=== PATIENT | female | born 1965 | race Caucasian/White ===

== ENCOUNTER 2020-06-09 16:23 | Outpatient (CLI) | payer OTHER, SELFPAY ==
--- NOTE | ~2020-06-09 | MM_ITS ---
EXAMINATION: MM screening [facility] BI w [facility] HISTORY: Screening mammogram TECHNIQUE: Craniocaudal and mediolateral oblique 3-D tomosynthesis images were obtained and synthetic 2-D images were generated. CAD analysis was submitted and interpreted. COMPARISON: 06/06/2019, 06/05/2018, 04/25/2017 BREAST PARENCHYMAL COMPOSITION: There are scattered areas of fibroglandular density. FINDINGS: Scattered benign-appearing calcifications are present. There is no evidence of suspicious m ass, calcification, or architectural distortion to suggest malignancy in either breast. There has bee n no suspicious interval change. IMPRESSION: 1. No mammographic evidence of malignancy. 2. Recommend routine screening mammography in one year. BI-RADS Category 2: Benign finding(s). Reviewed, dictated and finalized at location A.
== END 2020-06-09 16:24 | disposition home or self-care (01) ==
PROVIDERS: Visit Provider Obstetrics & Gynecology
DX: Z12.31 Encounter for screening mammogram for malignant neoplasm of breast (principal)
CPT/HCPCS: 77063; 77067

== ENCOUNTER 2020-10-17 15:19 | Observation (INO) | payer OTHER, SELFPAY ==
[2020-10-17] VITALS (11 sets, daily range): BP systolic 92–124; BP diastolic 49–82; PULSE 54–97; RESP 14–20; TEMP 36.4–36.9; O2SAT 98–100; BMI 28.1
--- NOTE | ~2020-10-17 | XR_ITS ---
EXAMINATION: XR chest 2V DATE: 10/17/2020 15:48 INDICATION: Chest pain TECHNIQUE: PA and lateral views of the chest are obtained. COMPARISON: 10/26/2013 FINDINGS: The lungs are free of acute opacities. There is no pleural effusion or pneumothorax. The ca rdiomediastinal silhouette is normal. There is mild thoracic spondylosis. IMPRESSION: 1. No acute cardiopulmonary abnormality. Reviewed, dictated and finalized at location A. RAM MANAGER SLP
--- NOTE | 2020-10-17 15:27 | ECG_ITS ---
Measurements Intervals [place] Rate: 89 P: 75 NE: 166 QRS: 69 QRSD: 94 T: 55 QT: 358 QTc: 436 Interpretive Statements SINUS RHYTHM NORMAL ECG Electronically Signed On 10-18-2020 7:31:56 SIDE PANEL HANGER by Hamlet Gilmore D.O.
--- NOTE | 2020-10-17 15:42 | ED.CHESTPAIN ---
HPI - Chest Pain General Chief Complaint: Chest Pain Stated Complaint: nausea and chest pain Time Seen by Provider: 10/17/20 15:24 Source: patient Mode of arrival: ambulatory Limitations: no limitations History of Present Illness HPI narrative: Patient is a 55-year-old female complaining of chest pain, midsternal, pressure, 8 out of 10, now down to 2 out of 10 after being given nitro by EMS, accompanied by diaphoresis started today. Patient denies any shortness of breath, dull pain, nausea, vomiting, fever or chills. Related Data Home Medications Medication Instructions Recorded Confirmed aspirin 81 mg PO DAILY 10/17/20 10/17/20 atorvastatin 20 mg PO DAILY 10/17/20 10/17/20 Allergies Allergy/AdvReac Type Severity Reaction Status Date / Time aloe vera Allergy Unknown Itching Verified 10/17/20 15:25 menthol Allergy Unknown Itching Verified 10/17/20 15:25 Review of Systems Review of Systems: All systems reviewed & are unremarkable except as noted in HPI and below Constitutional: Constitutional: Denies body ache(s), Denies chills, Denies excessive sweating, Denies fatigue, Denies fever(s), Denies headache(s), Denies lethargy, Denies malaise, Denies weakness and Denies weight loss Eyes: Eyes: Denies blurry vision, Denies change in vision and Denies loss of vision ENT: Denies dizziness, Denies ear discharge, Denies headache(s), Denies lip swelling, Denies epistaxis, Denies nasal congestion, Denies neck pain, Denies throat swelling and Denies tongue swelling Cardiovascular: Cardiovascular: Denies rapid heart rate, Denies edema, Denies irregular heart rhythm, Denies lightheadedness, Denies palpitations, Denies dyspnea and Denies dyspnea on exertion Respiratory: Respiratory: Denies chest congestion, Denies cough, Denies hemoptysis, Denies dyspnea and Denies dyspnea on exertion Gastrointestinal: Gastrointestinal: Denies abdominal pain, Denies melena, Denies hematochezia, Denies diarrhea, Denies nausea, Denies vomiting and Denies hematemesis Musculoskeletal: Musculoskeletal: Denies abnormal gait, Denies deformity, Denies joint swelling, Denies limited range of motion, Denies neck pain and Denies numbness Neurologic: Denies Abnormal speech present, Denies abnormal gait, Denies confusion, Denies dizziness, Denies headache(s), Denies focal weakness, Denies loss of vision, Denies numbness, Denies Other visual disturbances, Denies Sensory deficit (Neuro) and Denies weakness Psychiatric: Psychiatric: Denies confusion, Denies depression, Denies auditory hallucinations, Denies homicidal ideation and Denies suicidal ideation Endocrine: Endocrine: Denies cold intolerance, Denies excessive sweating, Denies fatigue, Denies heat intolerance and Denies palpitations Hematologic/Lymphatic: Hematologic/Lymphatic: Denies easy bleeding and Denies easy bruising Allergic/Immunologic: Allergic/Immunologic: Denies lip swelling, Denies throat swelling and Denies tongue swelling PMFSH Family History Family History Sibling Family history of gastrointestinal disorder Grandparent Cerebrovascular accident Social History Social History Alcohol intake: current Exam Const: General: cooperative, healthy appearing, comfortable, no acute distress, well developed, alert and awake; No confusion Orientation/consciousness: oriented to person, oriented to place, oriented to time, patient oriented x3 and No confusion Limitations: no limitations HENMT: Head: normal to inspection, normocephalic and atraumatic Ears: hearing grossly normal bilaterally, TM normal on the right and TM normal on the left General nose exam: Normal external nose present, Normal nares present and No nasal discharge present Face and sinus: normal facial exam Mouth: Yes Normal oral and palatal mucosa present, Yes lip normal, Yes tongue normal and Yes oropharynx normal Throat: po
[2020-10-17 16:16] LABS: Basophils Absolute Auto 0.1 K/mm3 (0.0-0.1); Eosinophils Absolute Auto 0.1 K/mm3 (0-0.3); Eosinophils Percent Auto 1.6 % (0-4.4); Hematocrit 41.2 % (37.0-47.0); Hemoglobin 13.8 g/dL (12.0-15.0); Immature Granulocyte Absolute 0.02 K/mm3 (0.00-0.031); Immature Granulocyte Percent A 0.3 % (0-0.5); Lymphocytes Absolute Auto 1.36 K/mm3 (0.9-3.2); Lymphocytes Percent Auto 23.5 % (18.3-44.2); Mean Corpuscular HGB Conc 33.5 g/dl (32-36); Mean Corpuscular Hemoglobin 31.7 pg (26-34); Mean Corpuscular Volume 94.7 fl (80-100); Monocytes Absolute Auto 0.6 K/mm3 (0.1-0.6); Monocytes Percent Auto 9.7 % (2.6-8.5); Neutrophils Absolute Auto 3.7 K/mm3 (1.3-6.7); Neutrophils Percent Auto 63.9 % (45.5-73.1); Platelet Count Result 236 k/mm3 (150-375); Red Blood Count 4.35 M/mm3 (4.2-5.4); Red Cell Distribution Width 12.6 % (11.5-14.5); White Blood Count 5.8 K/mm3 (4.5-10.0)
[2020-10-17 16:25] LABS: INR 0.9; Prothrombin Time 12.4 Seconds (11.1-14.7)
[2020-10-17 16:26] LABS: Partial Thromboplastin Time 25.8 SECONDS (22.3-36.8)
[2020-10-17 16:28] LABS: Alanine Aminotransferase 24 U/L (4-35); Alkaline Phosphatase 46 U/L (38-126); Anion Gap 6 mmol/L (8-16); Aspartate Amino Transferase 29 U/L (14-36); Bilirubin,Total 0.3 mg/dL (0.2-1.3); Blood Urea Nitrogen 17 mg/dL (7-17); Calcium 8.8 mg/dL (8.4-10.2); Carbon Dioxide 28 mmol/L (22-30); Chloride 106 mmol/L (98-107); Estimated CRCL calculation 58 ml/min; Estimated Glomerular Filt Rate > 60; Glucose 107 mg/dL (65-105); Potassium 3.9 mmol/L (3.4-5.0); Sodium 140 mmol/L (137-145)
[2020-10-17 16:37] LABS: NT Pro B Type Natriuretic Pept 57 PG/ML (5-100)
[2020-10-17 16:40] LABS: Troponin I < 0.012 ng/mL (0.000-0.034)
[2020-10-17] MEDS: NITROGLYCERIN OINTMENT 1 INCH DOSE TRANSDERM (17:46)
--- NOTE | 2020-10-17 19:30 | PM.IMHP ---
H&P: HPI History of Present Illness Date/Time: 10/17/20 19:30 Chief Complaint: Chest pain. Narrative: This is a very pleasant 55-year-old female with coronary artery disease status post stent to the proximal LAD in April 2013, hypertension, hyperlipidemia, Crohn's disease who presented to the emergency department earlier today via EMS from home for evaluation of chest pain. She was in usual state of health when she woke this morning and spent some time running errands before returning home to do laundry. While doing laundry she developed sudden onset of midsternal chest discomfort, described as squeezing or pressure like in nature associated with nausea, sweats, pounding heart, and dizziness. At the onset she rates the discomfort 5/10 but it did intensify to 8/10 before centrally resolving after receiving nitro spray and morphine. The symptoms are nearly identical to those she experience prior to having her stent placed in 2012. Currently she has no significant complaints and she specifically denies pleuritic pain, palpitations, vomiting, and shortness of breath. Review of Systems Review of Systems: Narrative: Twelve systems were reviewed with pertinent positives and negatives as per HPI. No recent cold or flu symptoms. Denies vomiting. No new exercise programs or recent heavy lifting. Prior to today she has not had any chest pain with exertion. No recent issues with regards to her Crohn's disease. Except as documented, all other systems were reviewed and are negative. [facility] Past Medical History Medical History (Updated 10/17/20 @ 22:31 by Sariah Colmenares PA-C) Coronary artery disease Stent to proximal LAD in 04/2013. Patient of Dr. Young at [facility]. Crohn's disease Hidradenitis suppurativa Several surgeries for treatment of such. Hyperlipidemia Hypertension Surgical History Surgical History (Updated 10/17/20 @ 22:32 by Sariah Colmenares PA-C) History of bladder suspension procedure History of cardiac catheterization (~04/2013) Status post stent to the proximal LAD. History of partial hysterectomy History of surgical procedure on eye proper using laser History of tonsillectomy Status post surgical removal of malignant neoplasm of skin Family History Family History Sibling Family history of gastrointestinal disorder Grandparent Cerebrovascular accident Social History Social History (Updated 10/17/20 @ 22:33 by Sariah Colmenares PA-C) Social History: Surrogate decision maker: Zenon Serrano, spouse. Code status: Full code. Smoking packs per day: 1 Smoking cigarettes per day: 20.0 Years smoked: 25 Smoking pack-years: 25.00 Smoking status: Former smoker Tobacco type: cigarettes Smoking end date: 05/14/14 Alcohol intake: never Drinks per week: 0 Substance use: never Additional living arrangements comments: Patient lives in [place] with her . They have 3 grown daughters. 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 Spiritual care concerns: No Meds Home Medications and Allergies Home Medications Medication Instructions Recorded Confirmed Type Adults Multivitamin 1 tablet PO DAILY 10/17/20 10/17/20 History alprazolam 0.25 mg PO TID PRN 10/17/20 10/17/20 History aspirin 81 mg PO DAILY 10/17/20 10/17/20 History atorvastatin 20 mg PO DAILY 10/17/20 10/17/20 History estrogens-methyltestosterone 1 tablet PO DAILY 10/17/20 10/17/20 History zolpidem 10 mg PO HS 10/17/20 10/17/20 History Allergies Allergy/AdvReac Type Severity Reaction Status Date / Time aloe vera Allergy Unknown Itching Verified 10/17/20 15:25 menthol Allergy Unknown Itching Verified 10/17/20 15:25 Vital Signs Vital Signs - 24 hr 10/17/20 15:17 10/17/20 15:40 10/17/20 16:40 Temperature 98.4 F Pulse Rate 88 72 64 Respiratory Rate 20 16 Bl
[2020-10-17 19:58] LABS: Troponin I < 0.012 ng/mL (0.000-0.034)
--- NOTE | 2020-10-17 21:00 | PC.NURSE ---
This patient, Adrianna Serrano, was admitted to IMU Room 213-01. Patient/family oriented to hospital policies and general routines including ID bracelet, bed and alarms, visiting hours, pain management, procedures, bathroom and other care routines, personal items, smoking policy, room service/diet, and visiting hours. Information on how to activate the Rapid Response Team has been discussed. Patient/Family are encouraged to report perceived risks to care and to ask questions if they do not understand what they are told or what they should do.
[2020-10-17 22:33] LABS: Troponin I < 0.012 ng/mL (0.000-0.034)
--- NOTE | 2020-10-17 23:26 | ECG_ITS ---
Measurements Intervals [place] Rate: 53 P: 45 RI: 168 QRS: 38 QRSD: 102 T: 24 QT: 435 QTc: 409 Interpretive Statements SINUS BRADYCARDIA BORDERLINE ECG Electronically Signed On 10-18-2020 7:39:57 FACILITY SALES AND ADMIN by Hamlet Gilmore D.O.
[2020-10-18] VITALS (20 sets, daily range): BP systolic 91–107; BP diastolic 52–72; PULSE 52–72; RESP 16–20; TEMP 36.1–37.2; O2SAT 98–100
[2020-10-18] MEDS: METOPROLOL SUCCINATE EXT REL 25 MG TABCR PO (01:15)
[2020-10-18] MEDS: NITROGLYCERIN OINTMENT 1 INCH DOSE TRANSDERM ×5 (01:16→23:13)
[2020-10-18] MEDS: ENOXAPARIN 80 MG/0.8 ML SYRINGE 70 MG SUB-Q (01:20)
[2020-10-18] MEDS: MULTIVITAMINS THERAPEUTIC TAB (*BKC) 1 TABLET PO (09:42)
--- NOTE | 2020-10-18 12:05 | PM.CNCAR ---
Assessment and Plan Additional Plan This is a 55-year-old lady who is known to have coronary disease as stated above she underwent successful PCI of the LAD about 8 years ago and has done well since then. She enters the hospital with a chest pain syndrome also with some palpitations at appears to be largely atypical of angina. There is no evidence of acute coronary syndrome objectively. We discussed the indication for a ischemia evaluation at this time given the symptoms. She did have a negative nuclear stress test about 2 years ago. Since her biomarkers and ECG are negative I told her that I would most commonly recommended another stress test of some sort. After a long discussion it is her preference to proceed with an angiogram because the symptoms are occurring in the face of no provoking symptoms and she is concerned about her coronary arteries. I also told the patient that the she could have some sort of tachyarrhythmia triggering this since the symptoms began without exertion at home while she was folding laundry and the initial symptom was abrupt tachycardia. In any event I am going to schedule her for a follow-up coronary angiogram tomorrow morning. Further recommendations will be forthcoming completing that exam. Severiano Limon MD [facility] History of Present Illness History of Present Illness Consult date/time: 10/18/20 12:05 Consult reason: chest pain Reason For Visit: Chest Pain Narrative: This is a pleasant 55-year-old lady am seeing at the request of the hospitalist because of chest pain. This is a patient who is known to me who had a intervention for proximal LAD stenosis in 2012. She has been doing well in recent years and has not seen me in the office for about 5 years. The patient states that she was in her usual state of good health when yesterday she was folding some laundry at home and suddenly had the onset of tachycardia and feeling unwell. In addition to the symptoms she had some sensation of pressure-like sensation in the substernal region that was constant waxing and waning in severity but constant for at least a couple of hours. For that reason she came to the emergency room for evaluation last evening. In the emergency room her electrocardiogram was found to be normal her biomarkers were normal and she was admitted to the hospitalist service. She was placed on some aspirin nitrates and was given a dose of heparin I believe in the emergency department. I was called at about 1:00 a.m. in the morning that she was having some recurrence of this symptom after her nitroglycerin paste was wiped off which had been placed to treat this in the emergency room. It was wiped off because her systolic blood pressure was in the mid 90s. The hospitalist at night instructed them to call me in the middle of the night to respond to this. I gave the patient an aspirin tablet placed her back on nitropaste a low dose of metoprolol and ordered systemic anticoagulation with Lovenox. Her biomarkers have remained normal and she appears to be very comfortable in the room the this afternoon. She has not had any pattern of exertional chest pain at all. This is a lady that has had a history of coronary disease as mentioned above she presented in the fall of 2012 with acute coronary syndrome at that time had ischemic ECG changes and an elevation in her biomarkers. Angiography demonstrated high-grade stenosis in the proximal LAD which was successfully treated with stenting. She had done well since then. She has had a number of admissions to the hospital since then and visits to the emergency room with chest pain symptoms. She was returned to the cytology laboratory manager shortly after her PCI for evaluation of these symptoms and was found to have no coronary stenosis. On number of occasions she has had stress test performed also which have been negative. She has been seeing a department head at [facility] more recently who she states has performed a negative nuclear stress t
[2020-10-18] MEDS: ACETAMINOPHEN 325 MG TABLET 650 MG PO ×2 (12:24→23:15)
--- NOTE | 2020-10-18 12:53 | PM.IMPN ---
Progress Note: A&P Assessment and Plan (1) Chest pain: Qualifiers: Chest pain type: unspecified Qualified Code(s): R07.9 - Chest pain, unspecified Code(s): R07.9 - Chest pain, unspecified Status: Acute Assessment and Plan: CP improving with nitro paste but still present -Trop neg x 3 -Ekg without significant abnormalities -Plan for cath in the morning -Continue aspirin -Pt takes oral hormones at home. She may need to change to topical due to cardiac disease (2) Coronary artery disease: Code(s): I25.10 - Atherosclerotic heart disease of [place] coronary artery without angina pectoris Status: Acute Assessment and Plan: As above -continue aspirin (3) Hyperlipidemia: Code(s): E78.5 - Hyperlipidemia, unspecified Status: Acute Assessment and Plan: Continue lipitor -consider increasing. await cath Time Spent With Patient Time with patient: 25 - 35 minutes Subjective Date/time seen: 10/18/20 12:53 Interval history: Pt is a 55 y/o female here for CP. Pt states she continues to have chest pain that is squeezing in nature. She said the nitro paste helps her and when they took it off last night she started having CP again. She says this feels like her prior heart attack although she did not have the diaphoresis this time that she had last time. She has not had any nausea, vomiting, diarrhea, fevers, or SOB. Nurse reports the pt was taking her home hormonal medication at bedside. This is on hold and nurse has informed pt not to do so. Review of Systems Review of Systems: All systems reviewed & are unremarkable except as noted in HPI and below Exam Narrative: Exam Narrative: General: Well developed well nourished patient in NAD HEENT: normocephalic Neck: supple Neuro: Alert and oriented x4 CV:RRR. Tele did not show any abnormalities except sinus bradycardia 50 Resp:CTA Abd: Soft, non distended. No pain to palpation. Positive bowel sounds Extremities: No swelling, erythema, or pain to palpation. Objective Data Vital Signs Vital Signs: Vital Signs - 24 hr 10/17/20 15:17 10/17/20 15:40 10/17/20 16:40 Temperature 98.4 F Pulse Rate 88 72 64 Respiratory Rate 20 16 Blood Pressure 124/82 Pulse Oximetry 100 99 10/17/20 18:30 10/17/20 19:20 10/17/20 20:00 Temperature Pulse Rate 76 64 54 L Respiratory Rate 14 16 Blood Pressure 120/64 118/72 Pulse Oximetry 100 98 10/17/20 20:10 10/17/20 22:00 10/17/20 22:06 Temperature 98.2 F Pulse Rate 55 L Respiratory Rate 16 Blood Pressure 94/53 L 92/59 L 92/49 L Pulse Oximetry 100 10/17/20 22:30 10/17/20 23:54 10/18/20 00:00 Temperature 97.5 F L Pulse Rate 58 L 97 52 L Respiratory Rate 16 Blood Pressure 94/61 L Pulse Oximetry 100 10/18/20 00:35 10/18/20 01:15 10/18/20 02:00 Temperature Pulse Rate 65 58 L Respiratory Rate Blood Pressure 105/65 Pulse Oximetry 100 10/18/20 04:00 10/18/20 06:00 10/18/20 08:00 Temperature 97.3 F L Pulse Rate 61 69 71 Respiratory Rate 16 Blood Pressure 97/52 L Pulse Oximetry 98 10/18/20 08:37 10/18/20 09:10 10/18/20 10:00 Temperature 98.3 F Pulse Rate 57 L 59 L Respiratory Rate 18 Blood Pressure 91/68 L Pulse Oximetry 98 98 10/18/20 12:13 Temperature 97.6 F Pulse Rate 59 L Respiratory Rate 18 Blood Pressure 100/61 Pulse Oximetry 100 Intake/Output Intake/Output: Intake & Output 10/15/20 10/16/20 10/17/20 10/18/20 23:59 23:59 23:59 23:59 Intake Total 550 Output Total 100 Balance 450 Meds/Results Medications: Active Medications Generic Name Dose Route Start Last Admin Trade Name Freq PRN Reason Stop Dose Admin Acetaminophen 650 mg 10/18/20 02:26 10/18/20 12:24 Acetaminophen 325 Mg Tablet PO 650 mg Q6H PRN Administration Pain Rated 1-3 Alprazolam 0.25 mg 10/17/20 21:21 Alprazolam (*Crx) 0.25 Mg Tablet PO TI
[2020-10-18] MEDS: ATORVASTATIN 20 MG TABLET PO (17:56)
[2020-10-18] MEDS: ASPIRIN 81 MG ENTERIC TABLET PO (17:56)
[2020-10-18] MEDS: ZOLPIDEM TARTRATE (*CRX) 5 MG TABLET 10 MG PO (23:14)
[2020-10-19] VITALS (17 sets, daily range): BP systolic 96–120; BP diastolic 63–73; PULSE 49–79; RESP 15–20; TEMP 35.7–36.7; O2SAT 97–100
[2020-10-19 04:44] LABS: Hemoglobin 11.6 g/dL (12.0-15.0); Mean Corpuscular HGB Conc 33.1 g/dl (32-36); Mean Corpuscular Hemoglobin 31.2 pg (26-34); Mean Corpuscular Volume 94.1 fl (80-100); Mean Platelet Volume 9.7 fl (7.4-10.4); Platelet Count Result 220 k/mm3 (150-375); Red Blood Count 3.72 M/mm3 (4.2-5.4); Red Cell Distribution Width 12.8 % (11.5-14.5); White Blood Count 7.2 K/mm3 (4.5-10.0)
[2020-10-19 04:52] LABS: INR 0.9; Prothrombin Time 13.1 Seconds (11.1-14.7)
[2020-10-19 04:54] LABS: Anion Gap 0 mmol/L (8-16); Blood Urea Nitrogen 15 mg/dL (7-17); Calcium 7.9 mg/dL (8.4-10.2); Carbon Dioxide 29 mmol/L (22-30); Chloride 109 mmol/L (98-107); Estimated CRCL calculation 63 ml/min; Estimated Glomerular Filt Rate > 60; Glucose 86 mg/dL (65-105); Potassium 4.1 mmol/L (3.4-5.0); Sodium 138 mmol/L (137-145)
[2020-10-19] MEDS: ACETAMINOPHEN 325 MG TABLET 650 MG PO (05:10)
[2020-10-19] MEDS: NITROGLYCERIN OINTMENT 1 INCH DOSE TRANSDERM (05:11)
--- NOTE | 2020-10-19 09:10 | WPDMODSED ---
Moderate Sedation Note-Pt Data Patient Data Diagnosis: chest pain previous history of LAD stent Present Complaint: chest pain Procedure to be performed/Plan: left heart catheterization Allergies Allergy/AdvReac Type Severity Reaction Status Date / Time aloe vera Allergy Unknown Itching Verified 10/17/20 15:25 menthol Allergy Unknown Itching Verified 10/17/20 15:25 Home Medications Medication Instructions Recorded Confirmed Type Adults Multivitamin 1 tablet PO DAILY 10/17/20 10/17/20 History alprazolam 0.25 mg PO TID PRN 10/17/20 10/17/20 History aspirin 81 mg PO 10/17/20 10/18/20 History atorvastatin 20 mg PO 10/17/20 10/18/20 History estrogens-methyltestosterone 1 tablet PO DAILY 10/17/20 10/17/20 History zolpidem 10 mg PO 10/17/20 10/17/20 History Current Medications: Active Medications Acetaminophen (Acetaminophen 325 Mg Tablet) 650 mg PO Q6H PRN PRN Reason: Pain Rated 1-3 Last Admin: 10/19/20 05:10 Dose: 650 mg Documented by: Alprazolam (Alprazolam (*Crx) 0.25 Mg Tablet) 0.25 mg PO TID PRN PRN Reason: Anxiety Aspirin (Aspirin 81 Mg Enteric Tablet) 81 mg PO 1700 [facility] Last Admin: 10/18/20 17:56 Dose: 81 mg Documented by: Atorvastatin Calcium (Atorvastatin 20 Mg Tablet) 20 mg PO 1700 [facility] Last Admin: 10/18/20 17:56 Dose: 20 mg Documented by: Multivitamins Therapeutic (Multivitamins Therapeutic Tab (*Bkc)) 1 tablet PO QAM [facility] Last Admin: 10/18/20 09:42 Dose: 1 tablet Documented by: Nitroglycerin (Nitroglycerin Ointment 1 Inch Dose) 1 inch TRANSDERM Q6HR [facility] Last Admin: 10/19/20 05:11 Dose: 1 inch Documented by: Zolpidem Tartrate (Zolpidem Tartrate (*Crx) 5 Mg Tablet) 10 mg PO [facility] Last Admin: 10/18/20 23:14 Dose: 10 mg Documented by: Sedation/Anesthesia: No previous sedation/anesthesia problems (including family history). [facility] Past Medical History Medical History (Updated 10/18/20 @ 13:02 by Kimberly Delaney PA-C) Coronary artery disease Stent to proximal LAD in 04/2013. Patient of Dr. Young at [facility]. Crohn's disease Hidradenitis suppurativa Several surgeries for treatment of such. Hyperlipidemia Surgical History Surgical History (Updated 10/17/20 @ 22:32 by Sariah Colmenares PA-C) History of bladder suspension procedure History of cardiac catheterization (~04/2013) Status post stent to the proximal LAD. History of partial hysterectomy History of surgical procedure on eye proper using laser History of tonsillectomy Status post surgical removal of malignant neoplasm of skin Family History Family History Sibling Family history of gastrointestinal disorder Grandparent Cerebrovascular accident Social History Social History (Updated 10/17/20 @ 22:33 by Sariah Colmenares PA-C) Social History: Surrogate decision maker: Zenon Serrano, spouse. Code status: Full code. Smoking packs per day: 1 Smoking cigarettes per day: 20.0 Years smoked: 25 Smoking pack-years: 25.00 Smoking status: Former smoker Tobacco type: cigarettes Smoking end date: 05/14/14 Alcohol intake: never Drinks per week: 0 Substance use: never Additional living arrangements comments: Patient lives in [place] with her . They have 3 grown daughters. 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 Spiritual care concerns: No Mod Sed Physical Exam Physical Exam Pre Procedural Exam: Normal: Appearance, Throat, Airway, Lungs, Heart Size, Heart Rate, Heart Rhythm, Neuro Exam and Extremities Hours since solid foods: 12 Hours since liquid intake: 12 Internal Medicine - PN: Obj Da Vital Signs Vital Signs: Vital Signs - 24 hr 10/18/20 10:00 10/18/20 12:00 10/18/20 12:13 Temperature 36.4 C Pulse Rate 59 L 72 59 L Respiratory Rate 18 Blood Pressure 100/61 Pulse Oximetry 100 10/18/20 14:0
--- NOTE | 2020-10-19 10:40 | WPDCARDPROC ---
Cardiac Cath Procedure Note Date of procedure:: 10/19/20 Performing physician:: Severiano Limon MD Indication:: Coronary artery disease with recurrent chest pain Brief clinical history:: this is a 55-year-old woman who underwent stenting of her LAD 8 years ago. She has been having instances of atypical sounding chest pain since then. A previous follow-up angiogram was unremarkable. Also a nuclear stress test done elsewhere about 2 years ago was also by report negative. Despite that she enters the hospital with palpitations triggering recurrent chest pain. ECGs and biomarkers are negative. Procedure Procedure performed:: Left ventriculography coronary angiography coronary IFR measurement Angio-Seal to right femoral artery Sedation/Medication given:: fentanyl 50 mg Versed 2 mg case start time 10:02 a.m. case end time 10:32 a.m. sedation provided by Jocelyn Culp RN, trained observer Access site:: right femoral artery Estimated blood loss:: 10-15 cc Procedure note:: patient was brought to the cardiac catheterization lab in the postabsorptive state where the right femoral triangle was prepared and draped in the typical fashion. Anesthesia was provided with 1% lidocaine infiltrated locally. Using the modified Seldinger technique the right femoral artery was punctured after this a 5 Iraqi vascular sheath was placed. Left ventriculography was then performed using a 5 Iraqi angled pigtail catheter as well as measuring left-sided hemodynamics. Following this I used a 5 Iraqi FL4 catheter to engage inject the left coronary artery and then a 5 Iraqi JR4 catheter to engage inject the right coronary artery. After this the cineangiograms were then carefully reviewed. I elected to perform a coronary IFR determination in the LAD. Prior to IFR the 5 Iraqi sheath was changed for a 6 Iraqi sheath the patient was anticoagulated with a bolus of Angiomax. Following IFR determination the case was terminated angiogram was done of the femoral artery through the sheath after which a 6 Iraqi Angio-Seal device was deployed at the puncture site with a good hemostatic result. She was taken to the holding area for recovery with no evidence of any procedural complication and left the nitriles lab technician with no evidence of a groin hematoma. Findings:: Hemodynamics: Central aortic pressure is 105/58 left ventricle 105/0 end-diastolic of 10 there is no systolic gradient on pullback across the aortic valve. Left ventricle: The LV is normal in size all segments contracted normally the global ejection fraction visually estimated to be about 60%. The left main coronary artery is nicely patent the left anterior descending is a moderate caliber artery extending down to around the apex. The visible stent material in the proximal LAD appears to be nicely patent. There is minimal loss of lumen in the stented segment brought angiographically no more than about 30% stenosis. In the straight caudal projection it looked a little bit worse than that. There was SHEREEN 3 flow in the LAD. Circumflex is a large caliber artery giving rise to the marginal branch is the circumflex is angiographically smooth and free of disease right coronary artery is large in caliber dominant to the posterior circulation the right coronary artery is smooth and free of disease. Coronary IFR determination in the LAD is 0.95 Conclusion:: 1. coronary artery disease with previous stenting of the proximal LAD angiographically remains patent with minimal loss of lumen and IFR demonstrates no evidence of flow-limiting disease. 2. No evidence of left main circumflex or right coronary disease 3. normal left ventricular systolic function 4. Angio-Seal to right femoral artery 5. based on these stated that chest pain syndrome appears to be nonischemic in nature Severiano Limon MD [facility]
[2020-10-19] MEDS: MULTIVITAMINS THERAPEUTIC TAB (*BKC) 1 TABLET PO (13:56)
--- NOTE | 2020-10-19 14:35 | PM.DS ---
DS: Admitting Diagnosis Admitting Diagnosis Admitting Diagnosis: chest pain DS: Discharge Diagnosis Discharge Diagnosis (1) Chest pain: Qualifiers: Chest pain type: unspecified Qualified Code(s): R07.9 - Chest pain, unspecified Code(s): R07.9 - Chest pain, unspecified Status: Acute Assessment and Plan: CP was intermittent and improved with nitro throughout her stay -Trop neg x 3 -Ekg without significant abnormalities -cath showed: Coronary artery disease with previous stenting of the proximal LAD angiographically remains patent with minimal loss of lumen and IFR demonstrates no evidence of flow-limiting disease, No evidence of left main circumflex or right coronary disease, normal left ventricular systolic function, Angio-Seal to right femoral artery, based on these stated that chest pain syndrome appears to be nonischemic in nature -No changes in medicine. (2) Coronary artery disease: Code(s): I25.10 - Atherosclerotic heart disease of [place] coronary artery without angina pectoris Status: Acute Assessment and Plan: As above -continue aspirin (3) Hyperlipidemia: Code(s): E78.5 - Hyperlipidemia, unspecified Status: Acute Assessment and Plan: Continue lipitor DS: Summary Hospital Course Hospital Course: Pt is a 55 y/o female with a PMH of CAD s/p stenting in the past who presnted to the ED for chest pain while doing laundry. Pt states her CP was 8/10 and was a pressure like feeling that was consistent with her first MT. Vitals in the ER were temp 36.9, pulse 88, RR 20, pulse o2 100. WBC and BMP normal. Trop neg x 3. EKG normal. Pt was admitted to the ED for observation. She continued to have some CP and cardiology was consulted. She underwent a cath which did not show any etiology for the CP. She had no signs and symptoms of PNA or PE (no cough, no o2 requirements, no LE swelling). She was tested for COVID (she had an exposure) which was negative. Pt did well after her cath and was ready for discharge. She was educated about the worrisome signs and symptoms to come back to the ER for and was discharged in stable condition and has plans to f/u with her curtain stitcher. pt was called 10/22/20 about her covid results and was educated to continue quaranting herself and call her pcp if she starts to have symptoms. Her CP has resolved. educated to come back to the ER if it reoccurs. Status at Discharge Functional status at discharge: independent ambulation Overall status at discharge: patient is back to baseline Time Spent with Patient Time attestation: Total time spent providing and/or coordinating discharge services:38 min Exam Narrative: Exam Narrative: General: Well developed well nourished patient in NAD HEENT: normocephalic Neck: supple Neuro: Alert and oriented x4 CV:RRR. Tele did not show any abnormalities except sinus bradycardia 50 Resp:CTA Abd: Soft, non distended. No pain to palpation. Positive bowel sounds Extremities: No swelling, erythema, or pain to palpation. DS: Data Data Completed and Pending Labs on day of discharge: Labs from last 24 hours 10/19/20 10/19/20 10/19/20 04:34 04:34 04:34 WBC 7.2 RBC 3.72 L Hgb 11.6 L Hct 35.0 L MCV 94.1 MCH 31.2 MCHC 33.1 RDW 12.8 Plt Count 220 MPV 9.7 PT 13.1 INR 0.9 Sodium 138 Potassium 4.1 Chloride 109 H Carbon Dioxide 29 Anion Gap 0 L BUN 15 Creatinine 0.80 Estim Creat Clear Calc 63 Estimated GFR > 60 Glucose 86 Calcium 7.9 L Discharge Plan Discharge Attending physician on discharge: Chan Cruz Consulting providers: Severiano Limon ; Kimberly Delaney ; Oli Aldana ; Sariah Colmenares ; Hamlet Gilmore Discharging Clinician: Kimberly Delaney Patient Disposition: Home, Self-Care Activity: as tolerated Diet: regular Discharge Instructions: -Follow up with your
[2020-10-20 12:21] LABS: SARS-CoV-2 RNA PCR Negative
== END 2020-10-19 15:15 | disposition home or self-care (01) ==
LOC: ANHED 17:25 → ANHIMU 17:57
PROVIDERS: Specialist; Admitting Provider Internal Medicine; Emergency Provider Emergency Medicine; Visit Provider Physician Assistant
PROC: 4A023N7 Measurement of Cardiac Sampling and Pressure, Left Heart, Percutaneous Approach (ICD-10-PCS; CPT 93452; principal; 2020-10-19 09:10)
PROC: 4A033BC Measurement of Arterial Pressure, Coronary, Percutaneous Approach (ICD-10-PCS; CPT 93571; 2020-10-19 09:10)
DX: R07.9 Chest pain, unspecified (principal); I25.10 Atherosclerotic heart disease of native coronary artery without angina pectoris; E78.5 Hyperlipidemia, unspecified; I10 Essential (primary) hypertension; K50.90 Crohn's disease, unspecified, without complications; Z95.5 Presence of coronary angioplasty implant and graft; Z79.82 Long term (current) use of aspirin; Z87.891 Personal history of nicotine dependence; Z20.822 Contact with and (suspected) exposure to COVID-19
CPT/HCPCS: 36415; 71046; 80048; 80053; 83880; 84484; 85025; 85027; 85610; 85730; 93005; 93458; 93571; 96372; 99285; A9270; C1760; C1769; C1887; C1894; C9803; G0269; G0378; J0583; J1644; J1650; J2250; J3010; J7040; U0003; U0005

== ENCOUNTER 2021-06-11 15:21 | Outpatient (CLI) | payer OTHER, SELFPAY ==
--- NOTE | ~2021-06-11 | MM_ITS ---
EXAMINATION: MM screening [facility] w kimberly HISTORY: Screening mammogram TECHNIQUE: Craniocaudal and mediolateral oblique 3-D tomosynthesis images were obtained and synthetic 2-D images were generated. CAD analysis was submitted and interpreted. COMPARISON: No prior mammogram is available for comparison at this institution. BREAST PARENCHYMAL COMPOSITION: There are scattered areas of fibroglandular density. FINDINGS: There is no evidence of suspicious mass, calcification, or architectural distortion to sugg est malignancy in either breast. There has been no suspicious interval change. IMPRESSION: 1. No mammographic evidence of malignancy. 2. Recommend routine screening mammography in one year. BI-RADS Category 1: Negative Reviewed, dictated and finalized at location A.
== END 2021-06-11 15:22 | disposition home or self-care (01) ==
LOC: ANHIMG 15:22
PROVIDERS: PCP Hospitalist; Visit Provider Obstetrics & Gynecology
DX: Z12.31 Encounter for screening mammogram for malignant neoplasm of breast (principal)
CPT/HCPCS: 77063; 77067

== ENCOUNTER 2021-10-06 07:38 | Outpatient (CLI) | payer OTHER, SELFPAY ==
--- NOTE | ~2021-10-06 | US_ITS ---
EXAMINATION: US abdomen limited DATE: 10/06/2021 08:09 INDICATION: Abdominal pain TECHNIQUE: Multiple grayscale and Doppler ultrasound images of the abdomen were obtained. COMPARISON: CT abdomen and pelvis dated 10/28/16 FINDINGS: The pancreatic head and body are normal in appearance. The pancreatic tail is not visualized. The vi sualized proximal to mid inferior vena cava is normal. Visualized proximal abdominal aorta is normal. Liver has normal echogenicity and contour, with a smooth surface. No liver lesion identified. No int rahepatic biliary duct dilation suspected. Portal venous flow was seen in the hepatopetal, normal dir ection and has normal Doppler waveform. The gallbladder is normal in appearance. There is no choleli thiasis. The common bile duct measures 2-3 mm, which is normal. Sonographic Araujo sign was reported as negative by the gi physician. IMPRESSION: 1. Normal right upper quadrant ultrasound. Reviewed, dictated and finalized at location A. OVISUAL PRODUCTION SPECIALIST
== END 2021-10-06 07:39 | disposition home or self-care (01) ==
LOC: ANHIMG 07:41
PROVIDERS: PCP Hospitalist; Visit Provider Obstetrics & Gynecology
DX: R10.84 Generalized abdominal pain (principal)
CPT/HCPCS: 76705

== ENCOUNTER → 2021-10-26 12:24 | Outpatient (CLI) | payer OTHER, SELFPAY ==
--- NOTE | ~2021-10-26 | CT_ITS ---
EXAMINATION: CT abdomen pelvis w con DATE: 10/26/2021 13:04 INDICATION: Generalized abdominal pain. A regular bowel movements. History of Crohn's disease. Histor y of diverticulitis with small bowel perforation. TECHNIQUE: Computed tomography (CT) of the abdomen and pelvis was performed with 100 cc Omnipaque 350 intravenous contrast. The dose-length product was 498.60 mGy-cm. Automated exposure control and iter ative reconstruction technique were employed. COMPARISON: CT dated 10/28/2016 FINDINGS: Lung bases are unremarkable. Heart size normal. No significant pleural or pericardial effus ion. There is chronic mild thickening of the sigmoid colon with associated diverticula. No significan t pericolonic inflammation is identified. Colon thickening appears progressive. The liver, spleen, pa ncreas, adrenal glands are unremarkable. There are small low-density lesions in both kidneys, most li angie benign. Gallbladder is present. No bowel obstruction. No free air or free fluid. No evidence for abscess. IMPRESSION: 1. Progression of mild chronic sigmoid colon thickening with associated diverticulosis. Consider ashley elation with colonoscopy to exclude underlying mass. Reviewed, dictated and finalized at location B. IMPRESSION: 1. Progression of mild chronic sigmoid colon thickening with associated diverti culosis. Consider correlation with colonoscopy to exclude underlying mass.
== END ==
PROVIDERS: PCP Hospitalist; Visit Provider Obstetrics & Gynecology
DX: R10.9 Unspecified abdominal pain (principal); K57.90 Diverticulosis of intestine, part unspecified, without perforation or abscess without bleeding
CPT/HCPCS: 74177; Q9967

== ENCOUNTER 2022-07-19 16:26 | Outpatient (CLI) | payer OTHER, SELFPAY ==
--- NOTE | ~2022-07-19 | MM_ITS ---
EXAMINATION: MM screening [facility] BI w kimberly HISTORY: Screening mammogram TECHNIQUE: Craniocaudal and mediolateral oblique 3-D tomosynthesis images were obtained and synthetic 2-D images were generated. CAD analysis was submitted and interpreted. COMPARISON: 06/11/2021, 06/09/2020, 06/06/2019 BREAST PARENCHYMAL COMPOSITION: There are scattered areas of fibroglandular density. FINDINGS: No suspicious mass, calcification, or architectural distortion are identified in either princess ast to suggest malignancy. There has been no suspicious interval change. IMPRESSION: 1. No mammographic evidence of malignancy. 2. Recommend routine screening mammography in one year. BI-RADS Category 1: Negative Reviewed, dictated and finalized at location A. ICIAN HELPER
== END 2022-07-19 16:27 | disposition home or self-care (01) ==
LOC: ANHIMG 16:27
PROVIDERS: PCP Hospitalist; Visit Provider Obstetrics & Gynecology
DX: Z12.31 Encounter for screening mammogram for malignant neoplasm of breast (principal)
CPT/HCPCS: 77063; 77067

== ENCOUNTER 2023-08-18 08:23 | Outpatient (CLI) | payer OTHER, SELFPAY ==
--- NOTE | ~2023-08-18 | MM_ITS ---
EXAMINATION: MM screening [facility] BI w kimberly HISTORY: Screening mammogram TECHNIQUE: Craniocaudal and mediolateral oblique 3-D tomosynthesis images were obtained and synthetic 2-D images were generated. CAD analysis was submitted and interpreted. COMPARISON: 07/19/2022, 06/11/2021, 06/09/2020 BREAST PARENCHYMAL COMPOSITION:Dense: The breasts are heterogeneously dense, which may obscure small masses. FINDINGS: No suspicious mass, calcification, or architectural distortion are identified in either princess ast to suggest malignancy. There has been no suspicious interval change. IMPRESSION: No mammographic evidence of malignancy. Recommend routine screening mammography in one year. BI-RADS Category 1: Negative Reviewed, dictated and finalized at location . NESS ANALYST [employer]
== END 2023-08-18 08:24 | disposition home or self-care (01) ==
LOC: ANHIMG 08:26
PROVIDERS: PCP Hospitalist; Visit Provider Obstetrics & Gynecology
DX: Z12.31 Encounter for screening mammogram for malignant neoplasm of breast (principal)
CPT/HCPCS: 77063; 77067

== ENCOUNTER 2024-10-04 08:04 | Outpatient (CLI) | payer OTHER, SELFPAY ==
--- NOTE | ~2024-10-04 | MM_ITS ---
EXAMINATION: MM screening yvonne BI w kimberly HISTORY: Screening TECHNIQUE: Craniocaudal and mediolateral oblique 3-D tomosynthesis images were obtained and synthetic 2-D images were generated. CAD analysis was submitted and interpreted. COMPARISON: Comparison to multiple prior studies sequentially, with oldest reviewed study dated 05/15. BREAST PARENCHYMAL COMPOSITION: Not dense: There are scattered areas of fibroglandular density. FINDINGS: There is no evidence of suspicious mass, calcification, or architectural distortion to sugg est malignancy in either breast. There has been no suspicious interval change. IMPRESSION: 1. No mammographic evidence of malignancy. 2. Recommend routine screening mammography in one year. BI-RADS Category 1: Negative Reviewed, dictated and finalized at location B. RIALS DIRECTOR
--- OUTSIDE RECORDS SUMMARY | 2024-10-04 08:13 | XMS_ITS | Clinical Summary ---
Author Organization [facility] Address [address] [place] [address] Care Team Providers Care Bulker Name Role Phone Amaya Pichardo MD Primary Care Provider [phone] Severiano Limon MD Unavailable [phone] Allergies No known active allergies Medications aspirin EC (ECOTRIN) 81 MG tablet Take 1 tablet (81 mg total) by mouth daily. Active zolpidem 5 MG tablet Take 1 tablet (5 mg total) by mouth nightly as needed for Sleep. Active ALPRAZolam 0.25 MG tablet Take 1 tablet (0.25 mg total) by mouth nightly as needed for Sleep. Active atorvastatin 20 MG tablet Take 1 tablet (20 mg total) by mouth after dinner. 10/19/2021 Active Multiple Vitamins-Minera ls (MULTIVITAMIN ADULTS 50+ OR) Activ e estrogens, conjugated,-met hylTESTOSTERone (EST ESTROGENS-METHY LTEST HS) 0.625-1.25 MG tablet Take 1 tablet by mouth daily. Active psyllium (METAMUCIL) 51.7 % packet Take 1 packet by mouth daily. Takes off an on Active oxyCODONE immediate release (ROXICODONE) 5 MG immediate release tabletIndicatio ns:Acute Pain < 7 Day Supply Take 0.5 tablets (2.5 mg total) by mouth every 4 (four) hours as needed. Indications: Acute Pain < 7 Day Supply 10 split tab 04/14/2022 Active evolocumab (REPATHA) 140 MG/ML injection (SYRINGE) Inject 1 mL (140 mg total) into the skin every 14 (fourteen) days. Active NON FORMULARY Pellet injection/hor flor Active nebivolol (BYSTOLIC) 2.5 MG tablet Take 1 tablet (2.5 mg total) by mouth every evening. Active semaglutide (OZEMPIC) 2 MG/3ML injection (PEN)Indication s:Diabetes Mellitus Inject into the skin every 7 days. Indications: Diabetes Active Active Problems Problem Noted Date Diagnosed Date Diverticulitis 04/11/2022 Colonic thickening 11/09/2021 Overview (04/11/2022): Added automatically from request for surgery [id number] Crohn's disease of colon wit h complication ([facility]) 10/18/2021 Overview (04/11/2022): Added automatically from request for surgery [id number] Gastroesophageal reflux disease 10/18/2021 Overview (04/11/2022): Added automatically from request for surgery [id number] History of coronary artery stent placement 12/08 Anxiety 04/18/2019 Overview (04/11/2022): Last Assessment & Plan: Has xanax to use as needed, but doesn't use much Psychophysiological insomnia 04/18/2019 Overview (04/11/2022): Last Assessment & Plan: Given handout on sleep hygiene Crohn's disease ([facility]) 02/17/2017 Overview (04/11/2022): Last Assessment & Plan: Managed with lifestyle modification Taking mutamucil UTD on colonoscopy, following with Dr. Lorenzana for next Chronic coronary artery disease 04/29/2014 Overview (04/11/2022): Last Assessment & Plan: S/p stent in LAD On 20mg atorvastatin Follows with cardiology Raised antibody titer 02/18/2014 Family History Medical History Relation Comments Cancer Maternal Grandmother rectal canc er Colon Cancer Maternal Grandmother Stroke Maternal Grandmother Relation Status Comments Daughter 1 Alive Daughter 2 Alive Daughter 3 Alive Father Other Maternal Grandmother Mother Alive Social History Tobacco Use Types Packs/Day Years Used Date Smoking Tobacco: Former Cigarettes 1 30 1 984 2013 Smokeless Tobacco: Never Tobacco Cessation:Counseling Given: Not Answered Alcohol Use Standard Drinks/Week Comments Yes 0 (1 standard drink = 0.6 oz pur e alcohol) one or two drinks a month Comments No Sex and Gender Information Value Date Recorded Sex Assigned at Not on file Legal Sex Female 7:47 AM CDT Gender Identity Female 12/15/2021 5:16 AM CDT Sexual Orientation Not on file Last Filed Vital Signs Vital Sign Reading Time Taken Comments Blood Pressure 91/61 06/27/2024 10:45 AM COUNSELOR MARRIAGE AND FAMILY Pulse 91 06/27/2024 10:12 AM COUN[employer] FAMILY Temperature 36.3 C (97.4 F) 06/27/2024 10:12 AM COUN[employer]AGE [employer] FAMILY Respiratory Rate 23 06/27/2024 10:12 AM COUN[employer] FAMILY Oxygen Saturation 100% 06/27/2024 10:50 AM COUN[employer] FAMILY Inhaled Oxygen Concentration - - Weight 63 kg (139 lb) 06/18/2024 10:32 AM COUN[employer]AGE [employer] FAMILY Height 157.5 cm (5' 2 ) 06/18/2024 10:32 AM COUNSEL[employer]AGE [employer] FAMILY Body Mass Index 25.42 06/18/2024 10:32 AM COUN[employer] FAMILY Plan of Treatment Health Maintenance Due Date Last Done Comments ASCVD LDL 1965 ASCVD Statin 1965 Annual Physical 1968 Pneumococcal Vaccine: Pediatrics (0 to 5 Years) and At-Risk Patients (6 to 64 Years) (1 of 2 - PCV) 1971 Hepatitis C 1983 Mammogram Screening 2005 Lung Cancer Screening 2015 DTaP, Tdap and Td Vaccines (2 - Tdap) 08/14/2022 08/14/2012 COVID-19 Vaccine (3 - season) 2024 10/23/2020, 09/26/2020 Influenza Adult (#1) 2024 06/12/2023, 06/15/2022, 05/13/2021, Additional history exists Colorectal Cancer Screening Colonoscopy (10 Years) 06/27/2034 06/27/2024, 12/15/2021, 12/15/2021 Zoster Vaccines Completed 02/02/2022, 06/28/2021 Meningococcal B Vaccine Aged Out No l onger eligible based on patient's age to complete this topic Meningococcal Vaccine Aged Out No ashlee brian eligible based on patient's age to complete this topic RSV Immunizations Under 20 Months Aged Out No longer eligible based on patient's age to complete this topic Goals Goal Patient Goal Type Associated Problems Recent Progress Patient-Stated? Author Patient will return to prior living situation and remain independent in ADLs upon discharge from hospital Lifestyle No Renetta Gu RN Medical Devices Implanted Type Area Unitizer Device Identifier Shelf Expiration Date Model / Serial / Lot Richter Capsule Delivery Implanted:Qty: 1 on 12/15/2021 by Regulo Cuevas DO at [facility] [id number] 02/26/2023 / / [id number] Procedures Procedure Name Priority Date/Time Associated Diagnosis Comments COLONOSCOPY Routine 12/15/2021 11:11 AM CDT from Last 3 Months or Most Recently Relevant to Health Maintenance Insurance Advance Directives * Full Code (Latest Code Status on File) Date Activated Date Inactivated Comments 04/11/2022 1:47 PM 04/14/2022 4:41 PM Care Teams Bulker Relationship Specialty Start Date End Date Amaya Pichardo MD [address] [address] PCP - General FAMILY PRACTICE 12/15/21 Severiano Limon MD [address] [facility] [address], [place] [address] CARDIOVASCULAR DISEASE 04/04/22
--- OUTSIDE RECORDS SUMMARY | 2024-10-04 08:13 | XMS_ITS | Clinical Summary ---
Author Organization [facility] Address [address] [place] [address] Care Team Providers Care [facility] Attendant Name Role Phone Amaya Pichardo MD Primary Care Pro vider Allergies No known active allergies Medications ALPRAZolam (XANAX) 0.25 mg tablet take 1 tablet by oral route as needed 0 0 3 Active nitroglycerin (NITROSTAT) 0.[address] 1 tablet by sublingual route at the 1st sign of attack; may repeat every 5 min until relief; if pain persists after 3 tablets in 15 min, prompt medical attention is recommended 25 1 4 Active aspirin 81 mg enteric coated tablet Take 1 tablet (81 mg total) by mouth daily Active zolpidem (AMBIEN) 10 mg tablet Take 1 tablet (10 mg total) by mouth nightly 3 9 Active estrogens-methylT ESTOSTERone (EEMT,COVARYX) 0.625-1.25 mg per tablet Take 1 tablet by mouth daily 2 Active multivit with minerals/lutein (MULTIVITAMIN 50 PLUS ORAL) Take by mouth Activ e psyllium (METAMUCIL) 3.4 gram packet Take 1 packet by mouth daily Active nebivoloL (BYSTOLIC) 2.5 mg tablet Take 1 tablet (2.5 mg total) by mouth daily 3 Active Repatha SureClick 140 mg/mL pen injector ADMINISTER 1 ML UNDER THE SKIN EVERY 14 DAYS 3 Active valACYclovir (VALTREX) 1 gram tabletIndications :Recurrent cold sores Take 2 tabs (2000 mg) 2 times a days for 1 day. 4 tablet 5 3 Active buPROPion SR (ZYBAN) 150 mg 12 hr tabletIndications :Other tobacco product nicotine dependence, uncomplicated Take 1 tablet (150 mg total) by mouth 2 (two) times a day 60 tablet 5 3 Active Active Problems Problem Noted Date Diagnosed Date Colonic thickening 11/09/2021 Overview (11/09/2021): Added automatically from request for surgery [id number] Crohn's disease of colon with complication 10/18 Overview (10/18/2021): Added automatically from request for surgery [id number] Gastroesophageal reflux disease 10/18/2021 Overview (10/18/2021): Added automatically from request for surgery [id number] History of coronary artery stent placement 12/08 Overweight with body mass in dex (BMI) of 27 to 27.9 in adult 06/12/2020 Assessment & Plan (06/12/2020 6:58 AM CDT): BMI Follow-up includes: nutrition counseling and exercise counseling. Psychophysiological insomnia 04/18/2019 Assessment & Plan (07/09/2022 1:00 PM INTERIOR PLANT CARETAKER): On 08/15 tablet ambien from obstetrics/gynecology nurse Assessment & Plan (06/28/2021 5:01 PM INTERIOR PLANT CARETAKER): Given handout on sleep hygiene Assessment & Plan (06/11/2020 4:28 PM CDT): Stable on 5mg ambien Assessment & Plan (04/18/2019 4:11 PM CDT): On 10mg ambien, will try to reduce to 5mg Anxiety 04/18/2019 Assessment & Plan (07/09/2022 1:01 PM INTERIOR PLANT CARETAKER): On xanax as needed from obstetrics/gynecology nurse Assessment & Plan (06/12/2020 7:02 AM CDT): Has xanax to use as needed, but doesn't use much Assessment & Plan (04/18/2019 4:12 PM CDT): PHQ Screening PHQ-2 Total Score (If total score is 3 or more points, staff should administer the PHQ-9): 2 PHQ-9 Total Score: 5 Denies SI Advised daily exercise If not improving would try on anti-depressant for 6-12 months Annual physical exam 04/18/2019 Assessment & Plan (07/31/2023 4:42 PM INTERIOR PLANT CARETAKER): Reviewed PMH & FH PHQ Screening reviewed Reviewed medications and supplements HCM: orders placed as needed Assessment & Plan (07/04/2022 4:21 PM INTERIOR PLANT CARETAKER): Reviewed PMH & FH PHQ Screening PHQ-2 Total Score (If total score is 3 or more points, staff should administer the PHQ-9): 0 Reviewed medications and supplements HCM: orders placed as needed Assessment & Plan (06/28/2021 4:08 PM INTERIOR PLANT CARETAKER): Former smoker: 40y pack history, recommend lung cancer screening PAP UTD 2017 Mammo: UTD request records Colonoscopy UTD February 2019, next due 2021 BP at goal Body mass index is 27.6 kg/m . Discussed diet and exercise Due for hep C screening: previously negative Discussed skin cancer prevention and screening Tdap & flu UTD Assessment & Plan (06/12/2020 6:58 AM CDT): Former smoker: 40y pack history, recommend lung cancer screening after turns 55 Alcohol use: occasional PAP UTD 2017, request records Mammo: UTD request records Colonoscopy UTD February 2019, next due 2021 BP at goal Body mass index is 27.25 kg/m . Discussed diet and exercise Due for hep C screening: previously negative Discussed skin cancer prevention and screening, advised to follow up with derm given skin cancer hx Tdap & UTD Advise shingrex, patient to think about Assessment & Plan (04/18/2019 4:17 PM CDT): Former smoker Alcohol use: occasional PAP UTD 2017, request records Mammo: ordered by obstetrics/gynecology nurse, request records after completes Colonoscopy UTD February 2019, next due 2021 BP 136/86 at goal Body mass index is 26.52 kg/m . Discussed diet and exercise Due for hep C screening: ordered today Discussed skin cancer prevention and screening, advised to follow up with derm given skin cancer hx Tdap UTD Return for flu vaccine Crohn's disease (CMS/HCC) 02/17/2017 Assessment & Plan (07/31/2023 4:53 PM INTERIOR PLANT CARETAKER): S/p colectomy Following with colorectal surgery Assessment & Plan (07/09/2022 1:00 PM INTERIOR PLANT CARETAKER): S/p colectomy Following with colorectal surgery Assessment & Plan (06/12/2020 7:01 AM CDT): Managed with lifestyle modification Taking mutamucil UTD on colonoscopy, following with Dr. Lorenzana for next Assessment & Plan (04/18/2019 4:12 PM CDT): Managed with lifestyle modification Follows with GI UTD on colonoscopy Chronic coronary artery disease 04/29/2014 Assessment & Plan (07/31/2023 4:55 PM INTERIOR PLANT CARETAKER): S/p stent Following with cardiology Continue repatha, bystolic & 81mg ASA Assessment & Plan (07/04/2022 4:22 PM INTERIOR PLANT CARETAKER): S/p stent Following with cardiology Continue 20mg atorvastatin & 81mg ASA Assessment & Plan (06/12/2020 6:53 AM CDT): S/p stent in LAD On 20mg atorvastatin Follows with cardiology Assessment & Plan (04/18/2019 4:13 PM CDT): S/p stent in LAD On 20mg atorvastatin Check lipids Follows with cardiology Nicotine dependence 02/18/2014 Assessment & Plan (07/31/2023 4:54 PM INTERIOR PLANT CARETAKER): Currently vaping Interested in cessation Start zyban as previously used to quit smoking cigarettes Raised antibody titer 02/18/2014 Immunizations Immunization Administration Dates Next Due DTaP 5 Pertussis 08/14/2012 Influenza, Quadrivalent, Spl it, Preservative Free, Intramuscular 05/07/2020,05/20/2019 Influenza, Trivalent, Cell C ulture-based MDCK, Preservative Free, Antibiotic Free, Intramuscular 06/12/2023 Influenza, Unspecified 06/15/2022,05/13/2021, ZOSTER Recombinant 02/02/2022,06/28/2021 Surgical History Surgery Date Site/Laterality Comments HYSTERECTOMY SKIN CANCER EXCISION CORONARY ANGIOPLASTY WITH STENT PLACEMENT 2012 LASIK COLONOSCOPY TONSILLECTOMY UPPER GASTROINTESTINAL ENDOSCOPY HEMORRHOID SURGERY x2 SIGMOIDECTOMY ABDOMINAL SURGERY Sigmoidectomy Medical History Medical History Date Comments Crohn's disease (CMS/HCC) (HCC) Crohn's Disease Heart disease Diverticulitis Basal cell carcinoma (BCC) 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 (SCCIS) of skin of nose Coronary artery disease Hidradenitis Autoimmune disease (CMS/HCC) (HCC) Dysphagia GERD (gastroesophageal reflux disease) Diverticulosis Colon polyp Bowel perforation (HCC) 2013, di verticulitis related, very small, recieved treatment Diverticulitis Hyperlipidemia Family History Medical History Relation Name Comments Cancer Maternal Grandmother Kelsey Rectal cancer Maternal Grandmother Kelsey Colon cancer Maternal Great-Grandfather Crohn's disease Sister 1 Ulcerative colitis Sister 2 Relation Name Status Comments Maternal Grandmother Kelsey Maternal Great-Grandfather Mother Alive Sister 1 Alive Sister 2 Alive Social History Tobacco Use Types Packs/Day Years Used Date Smoking Tobacco: Former Cigarettes 1 33 0 08/14/1980 - 08/14/2013 Smokeless Tobacco: Never Tobacco Cessation:Counseling Given: Not Answered Alcohol Use Standard Drinks/Week Comments Yes 0 (1 standard drink = 0.6 oz pur e alcohol) AUDIT-C Answer Date Recorded Q1: How often do you have a drink containing alcohol? Monthly or less 07/31/2023 Q2: How many drinks containi ng alcohol do you have on a typical day when you are drinking? Patient does not drink Frequency of Binge Drinking Not on file 07/14 PHQ-2 Answer Date Recorded PHQ-2 Total Score (If total score is 3 or more points, staff should administer the PHQ-9) 0 07/31/2023 Comments No Sex and Gender Information Value Date Recorded Sex Assigned at Not on file Legal Sex Female 8:51 PM INTERIOR PLANT CARETAKER Gender Identity Not on file Sexual Orientation Not on file Obstetrics History Last Filed Vital Signs Vital Sign Reading Time Taken Comments Blood Pressure 118/72 07/31/2023 4:22 PM INTERIOR PLANT CARETAKER Pulse 70 07/31/2023 4:22 PM INTERIOR PLANT CARETAKER Temperature 37.1 C (98.8 F) 07/31/2023 4:22 PM INTERIOR PLANT CARETAKER Respiratory Rate 18 07/31/2023 4:22 PM INTERIOR PLANT CARETAKER Oxygen Saturation 98% 07/31/2023 4:22 PM INTERIOR PLANT CARETAKER Inhaled Oxygen Concentration - - Weight 63 kg (139 lb) 06/19/2024 5:18 PM INTERIOR PLANT CARETAKER Height 157.5 cm (5' 2 ) 06/19/2024 5:18 PM INTERIOR PLANT CARETAKER Body Mass Index 25.42 06/19/2024 5:18 PM INTERIOR PLANT CARETAKER Plan of Treatment Health Maintenance Due Date Last Done Comments Hepatitis B Screening 1983 Pneumococcal vaccine <65 (1 of 2 - PCV) 1984 DTaP/Tdap/Td Vaccine (2 - Tdap) 08/14/2022 3 Covid-19 Vaccine (3 - 2023-2 5 season) 2024 10/23/2020, 09/26/2020 Influenza Vaccine (#1) 2024 3, 06/15/2022, 05/13/2021, Additional history exists Depression Screening 07/31/2024 07/31/2023, 07/31/2023, 07/04/2022, Additional history exists Regular Well Visit/Exam 18-64 07/31/2024, 07/04/2022, 06/28/2021, Additional history exists Breast Cancer Screening-Mammogram 08/18/2024 08/18/2023, 06/11/2021, 06/09/2020 Lung Cancer Screening 06/20/2025 06/19/2024 , 08/02/2022, 07/26/2021 Colon Cancer Screening-Colonoscopy 06/27/2029 06/27/2024, 02/12/2019 Colon Cancer Screening-CT Colonography Discontinued 02/12/2019 Colon Cancer Screening-DNA Stool Discontinued 02/13/20 Colon Cancer Screening-FIT Discontinued 02/12/2019 Colon Cancer Screening-Sigmoidoscopy Discontinued 02/12/2019 Hepatitis C Screening Completed 05/22/2020 Zoster Vaccine Completed 02/02/2022, 06/28/2021 Medical Devices Implanted Type Area Coping Machine Assembler Device Identifier Shelf Expiration Date Model / Serial / Lot Stent N/A: Aorta Bladder Sling N/A: Bladder Procedures Procedure Name Priority Date/Time Associated Diagnosis Comments CT LUNG CANCER SCREENING Schedule Routine, Read Routine (OP Routine) 06/19/2024 5:17 PM INTERIOR PLANT CARETAKER Other tobacco product nicotine dependence, uncomplicated Encounter for screening for lung cancer History of cigarette smoking MAMMOGRAPHY Routine 08/18/2023 HEPATITIS C ANTIBODY Routine 05/22/2020 10:18 AM CDT Annual physical exam COLONOSCOPY Routine 02/12/2019 from Last 3 Months or Most Recently Relevant to Health Maintenance Results * CT Lung Cancer Screening (06/19/2024 5:17 PM INTERIOR PLANT CARETAKER) Anatomical Region Laterality Modality Chest N/A Computed Tomogra phy 06/24/2024 2:57 PM INTERIOR PLANT CARETAKER Narrative 06/24/2024 4:39 PM INTERIOR PLANT CARETAKER EXAM DESCRIPTION: CT LUNG CANCER SCREENING REASON FOR STUDY: Screening CT of the chest in a former smoker with a 32 pack year smoking history. Additional history: None. TECHNIQUE: Low dose CT scan of the chest was performed without intravenous contrast using helical scanning technique. The exam extends from the lung apices through the lung bases. Automatic exposure control was used as a dose optimization technique. NOTE: This study was performed for the specific purposes of lung cancer screening and is not an alternative to diagnostic chest CT. RADIATION DOSE: CT dose index volume (CTDIvol) = 2.94 mGy COMPARISON: CT chest dated 08/02/2022 FINDINGS: SMOKING RELATED LUNG DISEASE: There are minimal to mild emphysematous changes of lungs. There is minimal biapical pleural thickening and scarring. The central airways are grossly patent. There is no definite evidence of focal consolidation or pleural effusion. LUNG NODULES: No suspicious pulmonary nodules identified. A previously described 3 mm pulmonary nodule in the left upper lobe and 4 mm pulmonary nodule in the right lower lobe are not well seen on this examination. CORONARY ARTERY CALCIFICATION: Present. OTHER: The visualized portion of thyroid gland is grossly stable. The heart size is stable. There are mild atherosclerotic changes of thoracic aorta and coronary vessels. There is no definite unenhanced CT evidence of mediastinal, hilar, or axillary lymphadenopathy. The bilateral adrenal glands are grossly stable and unremarkable. There is a minimal to mild S shaped scoliotic curvature of the spine with degenerative changes. IMPRESSION: No suspicious pulmonary nodule. Lung-RADS v1.1 category 2: Benign appearance or behavior. Recommendation: Low dose Screening CT of chest in 12 months. THIS IS AN ELECTRONICALLY VERIFIED FINAL REPORT 06/24/2024 4:39 PM - Electronically signed by Uriel Domniique M.D. MM: MM Report ID: [id number] Reading Location: [place] [address] Amaya Pichardo MD IMG CT PROCEDURES Final Result * HM MAMMOGRAPHY (08/18/2023) Historical Provider HEALTH MAINTENANCE Final Result * Hepatitis C antibody (05/22/2020 10:18 AM CDT) [facility] Hep C Ab <0.1 0.0 - 0.9 s/co ratio [facility] - 01 Comment: Negative: < 0.8 Indeterminate: 0.8 - 0.9 Positive: > 0.9 The CDC recommends that a positive HCV antibody result be followed up with a HCV Nucleic Acid Amplification test (076069). Blood specimen (specimen) 05/22/2020 10:18 AM CDT 05/22/2020 Narrative [facility] - 05/23/2020 7:08 AM CDT Performed at: [facility] [id number] Heel Shaper: Chao Ewing PhD, Phone: [phone] Amaya Pichardo MD LAB MICROBIOLOGY - GENERAL ORDERABLES Final Result [facility] - 01 * COLONOSCOPY (02/12/2019) Scribed Colonoscopy Abnormal Comment:diverticulosis, no i nflammation or polyps us Historical Provider HEALTH MAINTENANCE Final Result from Last 3 Months or Most Recently Relevant to Health Maintenance Insurance [facility] CHOICE PLUS [address] CHOICE PLUS [facility] CHOICE PLUS Care Teams [facility] Attendant Relationship Specialty Start Date End Date Amaya Pichardo MD PCP - General Family Medicine 03/20/19
--- OUTSIDE RECORDS SUMMARY | 2024-10-04 08:13 | XMS_ITS | Referral Summary ---
Author Organization [facility] Address [address] [place] [address] Care Team Providers Care Lift Supervisor Name Role Phone Amaya Pichardo MD Primary [...] (11/09/2021): Added automatically from request for surgery [id number] Crohn's disease of colon with complication 10/18 Overview (10/18/2021): Added automatically from request for surgery [id number] Gastroesophageal reflux disease 10/18/2021 Overview (10/18/2021): Added automatically from request for surgery [id number] History of coronary artery stent placement 12/08 Overweight with body mass in dex (BMI) of 27 to 27.9 in adult 06/12/2020 Assessment & Plan (06/12/2020 6:58 AM CDT): BMI Follow-up includes: nutrition counseling and exercise counseling. Psychophysiological insomnia 04/18/2019 Assessment & Plan (07/09/2022 1:00 PM GRAVEL HAULER): On 08/15 tablet ambien from child care centre manager Assessment & Plan (06/28/2021 5:01 PM GRAVEL HAULER): Given handout on sleep hygiene Assessment & Plan (06/11/2020 4:28 PM CDT): Stable on 5mg ambien Assessment & Plan (04/18/2019 4:11 PM CDT): On 10mg ambien, will try to reduce to 5mg Anxiety 04/18/2019 Assessment & Plan (07/09/2022 1:01 PM GRAVEL HAULER): On xanax as needed from child care centre manager Assessment & Plan (06/12/2020 7:02 AM CDT): [...] 04/18/2019 Assessment & Plan (07/31/2023 4:42 PM GRAVEL HAULER): Reviewed PMH & FH PHQ Screening reviewed Reviewed medications and supplements HCM: orders placed as needed Assessment & Plan (07/04/2022 4:21 PM GRAVEL HAULER): Reviewed PMH & FH PHQ Screening PHQ-2 Total Score (If total score is 3 or more points, staff should administer the PHQ-9): 0 Reviewed medications and supplements HCM: orders placed as needed Assessment & Plan (06/28/2021 4:08 PM GRAVEL HAULER): Former smoker: 40y pack history, recommend lung [...] UTD 2017, request records Mammo: ordered by child care centre manager, request records after completes Colonoscopy UTD February [...] 02/17/2017 Assessment & Plan (07/31/2023 4:53 PM GRAVEL HAULER): S/p colectomy Following with colorectal surgery Assessment & Plan (07/09/2022 1:00 PM GRAVEL HAULER): S/p colectomy Following with colorectal surgery Assessment & Plan (06/12/2020 7:01 AM CDT): Managed with lifestyle modification Taking mutamucil UTD on colonoscopy, following with Dr. Lorenzana for next Assessment & Plan (04/18/2019 4:12 PM CDT): Managed with lifestyle modification Follows with GI UTD on colonoscopy Chronic coronary artery disease 04/29/2014 Assessment & Plan (07/31/2023 4:55 PM GRAVEL HAULER): S/p stent Following with cardiology Continue repatha, bystolic & 81mg ASA Assessment & Plan (07/04/2022 4:22 PM GRAVEL HAULER): S/p stent Following with cardiology Continue 20mg atorvastatin & 81mg ASA Assessment & Plan (06/12/2020 6:53 AM CDT): S/p stent in LAD On 20mg atorvastatin Follows with cardiology Assessment & Plan (04/18/2019 4:13 PM CDT): S/p stent in LAD On 20mg atorvastatin Check lipids Follows with cardiology Nicotine dependence 02/18/2014 Assessment & Plan (07/31/2023 4:54 PM GRAVEL HAULER): Currently vaping Interested in cessation Start zyban as previously used to quit smoking cigarettes Raised antibody titer 02/18/2014 Immunizations Immunization Administration Dates Next Due DTaP 5 Pertussis 08/14/2012 Influenza, Quadrivalent, Spl it, Preservative Free, Intramuscular 05/07/2020,05/20/2019 Influenza, Trivalent, Cell C ulture-based MDCK, Preservative Free, Antibiotic Free, Intramuscular 06/12/2023 Influenza, Unspecified 06/15/2022,05/13/2021, ZOSTER Recombinant 02/02/2022,06/28/2021 Social History Tobacco Use Types Packs/Day Years [...] on file Legal Sex Female 8:51 PM GRAVEL HAULER Gender Identity Not on file Sexual Orientation Not on file Last Filed Vital Signs Vital Sign Reading Time Taken Comments Blood Pressure 118/72 07/31/2023 4:22 PM GRAVEL HAULER Pulse 70 07/31/2023 4:22 PM GRAVEL HAULER Temperature 37.1 C (98.8 F) 07/31/2023 4:22 PM GRAVEL HAULER Respiratory Rate 18 07/31/2023 4:22 PM GRAVEL HAULER Oxygen Saturation 98% 07/31/2023 4:22 PM GRAVEL HAULER Inhaled Oxygen Concentration - - Weight 63 kg (139 lb) 06/19/2024 5:18 PM GRAVEL HAULER Height 157.5 cm (5' 2 ) 06/19/2024 5:18 PM GRAVEL HAULER Body Mass Index 25.42 06/19/2024 5:18 PM GRAVEL HAULER Plan of Treatment Not on file Medical Devices Implanted Type Area Collection Systems Technician Device Identifier Shelf Expiration Date Model / Serial / Lot Stent N/A: Aorta Bladder Sling N/A: Bladder Procedures Procedure Name Priority Date/Time Associated Diagnosis Comments CT LUNG CANCER SCREENING Schedule Routine, Read Routine (OP Routine) 06/19/2024 5:17 PM GRAVEL HAULER Other tobacco product nicotine dependence, uncomplicated Encounter for screening for lung cancer History of cigarette smoking MAMMOGRAPHY Routine 08/18/2023 HEPATITIS C ANTIBODY Routine 05/22/2020 10:18 AM CDT Annual physical exam COLONOSCOPY Routine 02/12/2019 from Last 3 Months or Most Recently Relevant to Health Maintenance Results * CT Lung Cancer Screening (06/19/2024 5:17 PM GRAVEL HAULER) Anatomical Region Laterality Modality Chest N/A Computed Tomogra phy 06/24/2024 2:57 PM GRAVEL HAULER Narrative 06/24/2024 4:39 PM GRAVEL HAULER EXAM DESCRIPTION: CT LUNG CANCER SCREENING REASON [...] 4:39 PM - Electronically signed by Uriel Dominique M.D. MM: MM Report ID: [id number] Reading Location: [id number] Amaya Pichardo MD IMG CT PROCEDURES Final Result * MAMMOGRAPHY (08/18/2023) Historical Provider HEALTH MAINTENANCE Final Result * Hepatitis C antibody (05/22/2020 10:18 AM CDT) Hep C Ab <0.1 0.0 - 0.9 s/co ratio [facility] - 01 Comment: Negative: < 0.8 Indeterminate: 0.8 - 0.9 Positive: > 0.9 The CDC recommends that a positive HCV antibody result be followed up with a HCV Nucleic Acid Amplification test ([id number]). Blood specimen (specimen) 05/22/2020 10:18 AM CDT 05/22/2020 Narrative [facility] - 05/23/2020 7:08 AM CDT Performed at: 01 - [facility] [id number] Benefits Clerk: Chao Ewing PhD, Phone: [phone] Amaya Pichardo MD LAB MICROBIOLOGY - GENERAL ORDERABLES Final Result [facility] - 01 * COLONOSCOPY (02/12/2019) Scribed Colonoscopy Abnormal Comment:diverticulosis, no i nflammation or polyps us Historical Provider MD HEALTH MAINTENANCE Final Result from Last 3 Months or Most Recently Relevant to Health Maintenance Insurance [facility] CHO[facility] PLUS [facility] PLUS [facility] PLUS Care Teams Lift Supervisor Relationship Specialty Start Date End Date Amaya Pichardo MD PCP - General Family Medicine 03/20/19
== END 2024-10-04 08:05 | disposition home or self-care (01) ==
LOC: ANHIMG 08:06
PROVIDERS: PCP Hospitalist; Visit Provider Obstetrics & Gynecology
DX: Z12.31 Encounter for screening mammogram for malignant neoplasm of breast (principal)
CPT/HCPCS: 77063; 77067

== ENCOUNTER 2024-10-15 16:14 | Outpatient (CLI) | payer OTHER, SELFPAY | END 2024-10-15 16:15 | disposition home or self-care (01) | PROVIDERS: PCP Hospitalist; Visit Provider Hospitalist | DX: M51.369 Other intervertebral disc degeneration, lumbar region without mention of lumbar back pain or lower extremity pain (principal); M50.31 Other cervical disc degeneration, high cervical region | CPT/HCPCS: 72072; 72100 ==

== ENCOUNTER 2024-11-27 16:14 | Outpatient (CLI) | payer OTHER, SELFPAY ==
--- NOTE | ~2024-11-27 | XR_ITS ---
XR cervical spine 4-5V Ordering provider: Amaya Pichardo, History: . Other chronic pain . Comparison: October 25, 2024 FINDINGS: VERTEBRAL BODIES: Normal height and alignment. No visible fracture or subluxation. The dens is intact . DISK SPACES: Well maintained. PARASPINOUS SOFT TISSUES: No prevertebral soft tissue swelling. IMPRESSION: No acute osseous abnormality cervical spine. Reviewed, dictated and finalized at location A.
== END 2024-11-27 16:15 | disposition home or self-care (01) ==
LOC: MICIMG 16:16
PROVIDERS: PCP Hospitalist; Visit Provider Hospitalist
DX: G89.29 Other chronic pain (principal); M54.6 Pain in thoracic spine
CPT/HCPCS: 72050